=== PATIENT | female | born 1985 | race Caucasian/White ===

== ENCOUNTER 2022-04-24 05:38 | Day surgery (SDC) | payer BC ==
[2022-04-20 15:13] LABS: ALBUMIN 3.7 G/DL (3.4-5.0); ALBUMIN/GLOBULIN RATIO 1.2 (1.1-1.5); ALKALINE PHOSPHATASE 76 IU/L (46-116); BLOOD UREA NITROGEN 17 MG/DL (7-18); BUN/CREATININE RATIO 24.3 (6.6-38.0); CALCIUM 9.5 MG/DL (8.5-10.1); CHLORIDE 106 MMOL/L (99-107); HCG SERUM QL NEGATIVE; PRE OP ALT 27 U/L (30-65); PRE OP ANION GAP 9 (8-16); PRE OP AST 17 U/L (10-37); PRE OP BILIRUB, TOTAL 0.3 MG/DL (0.0-1.0); PRE OP GLUCOSE 91 MG/DL (70-104); PRE OP POTASSIUM 4.1 MMOL/L (3.4-5.1); PRE OP SODIUM 140 MMOL/L (135-145); TOTAL CARBON DIOXIDE 24.6 MMOL/L (24-32); TOTAL PROTEIN 6.8 G/DL (6.4-8.2); eGFR > 90 ML/MIN
[~2022-04-24] VITALS: Ht 160 cm; Wt 81.2 kg
[2022-04-24] VITALS (9 sets, daily range): BP systolic 106–125; BP diastolic 68–85
[~2022-04-24 05:38] MED LIST: ACET-812 PO; IBUPROFEN PO; famotidine 20mg tablet PO ONE; ringers solution, lacted 1,000 ML IV SCH
[2022-04-24] MEDS ORDERED: BUPIVAcaine/PF 2.5 mg/ml (0.25%) 30ml vial ONE (06:43)
[2022-04-24] MEDS ORDERED: proCHLORperazine 10 MG/2 ml inj IV PRN (07:30)
[2022-04-24] MEDS ORDERED: labetalol 20mg/4ml (5mg/ml) syringe IV PRN (07:30)
[2022-04-24] MEDS ORDERED: ondansetron/PF 4mg/2ml inj IV PRN (07:30)
[2022-04-24] MEDS ORDERED: meperidine/PF 25mg/ml syringe IV PRN ×3 (07:30)
[2022-04-24] MEDS ORDERED: ketorolac trometh. 30mg/ml inj. IV ONE (07:30)
[2022-04-24] MEDS ORDERED: ringers solution, lacted 1,000 ML IV SCH (07:30)
[2022-04-24] MEDS ORDERED: acetaminophen 1,000mg/100ml IV 100 ML IV PRN (07:30)
[2022-04-24] MEDS ORDERED: fentaNYL/PF 50MCG/1 ML 2ML syringe IV PRN ×2 (07:30)
[2022-04-24] MEDS ORDERED: hydrALAZINE 20mg/ml inj. IV PRN (07:30)
[2022-04-24] MEDS ORDERED: midazolam 1 mg/ML 2ml injection ONE (07:37)
[2022-04-24] MEDS ORDERED: fentaNYL /PF 50mcg/ml 5ml ampule ONE (07:39)
[2022-04-24] MEDS ORDERED: propofol inj 20 ML IV ONE (07:52)
[2022-04-24] MEDS ORDERED: ondansetron/PF 4mg/2ml inj ONE (07:52)
[2022-04-24] MEDS ORDERED: dexamethasone sod phosphate 4mg/ml inj. ONE (07:52)
[2022-04-24] MEDS ORDERED: LIDOcaine 2% (20mg/ml) 5ml vial ONE (07:52)
[2022-04-24] MEDS ORDERED: rocuronium 10mg/ml inj IV ONE (07:52)
[2022-04-24] MEDS ORDERED: neostigmine methylsulfate 1 MG/ML 10ml vial ONE (09:07)
--- NOTE | 2022-04-24 09:15 | NUR ---
PT ARRIVED TO RR VIA GURNEY ACCOMPANIED BY -ANESTHESIA REPORT GIVEN, VSS, PT WAKING UP, SLIGHT NAUSEA AND PRESSURE IN ABD-WILL BE MEDICATED, LAP SITES X3-DERMABOND CDI, JEN PAD PRESENT=NO DRAINAGE YET, PIV 20G TO RIGHT HAND.
--- NOTE | 2022-04-24 10:25 | NUR ---
PT DOING WELL, VSS, PAIN TOELRABLE-REFUSED ANYTHING FURTHER, UP AND GETTING DRESSED, LAP SITESX3-CDI, SCANT DRAINAGE ON JEN PAD, PIV D/CD-CANULA INTACT, NAUSEA RESOLVED, D/C INSTRUCTIONS GIVEN TO PT-ALL QUESTIONS ANSWERED, TAKEN VIA W/C TO VEHICLE FOR TRANSPORT HOME.
== END 2022-04-24 10:25 | disposition home or self-care (01) ==
LOC: PAS 05:38
PROVIDERS: ATTEND Obstetrics & Gynecology
DX: Z30.2 Encounter for sterilization (principal); N92.0 Excessive and frequent menstruation with regular cycle; F17.210 Nicotine dependence, cigarettes, uncomplicated; Z88.2 Allergy status to sulfonamides; Z88.5 Allergy status to narcotic agent; Z86.16 Personal history of COVID-19; Z98.890 Other specified postprocedural states; Z79.899 Other long term (current) drug therapy; Z88.8 Allergy status to other drugs, medicaments and biological substances; D64.9 Anemia, unspecified
CPT/HCPCS: 36415; 58301; 58563; 58661; 80053; 82948; 84703; 86885; 86900; 86901; J0131; J1100; J1885; J2250; J2405; J2704; J2710; J3010; J3490; J7030; J7120; Z7506; Z7508; Z7512; A4355; A4618; A4649; A6258